=== PATIENT | male | born 1975 | race African-American/Black ===

== ENCOUNTER 2016-10-14 12:21 | Inpatient (IN) | payer OTHER ==
[2016-10-14 12:44] VITALS: BMI 21.3
--- NOTE | 2016-10-14 15:33 | HP ---
CIWA Score - CIWA Score Nausea/Vomitin-No Nausea/No Vomiting Muscle Tremors: 4-Moderate,w/Arms Extend Anxiety: 3 Agitation: 4-Moderately Restless Paroxysmal Sweats: 3 Orientation: 0-Oriented Tacttile Disturbances: 0-None Auditory Disturbances: 0-None Visual Disturbances: 0-None Headache: 0-None Present CIWA-Ar Total Score: 14 Admission ROS BHS - HPI Chief Complaint: I am here to detox. Allergies/Adverse Reactions: Allergies Allergy/AdvReac Type Severity Reaction Status Date / Time No Known Allergies Allergy Verified 10/14/16 14:49 History of Present Illness: pt is a 40yr old male with a history of alcohol and cocaine dependence seeking detox for treatment. Exam Limitations: No Limitations - Ebola screening Have you traveled outside of the country in the last 21 days: No Have you had contact with anyone from an Ebola affected area: No Have you been sick,other than usual withdrawal symptoms: No Do you have a fever: No - Review of Systems Constitutional: Chills, Diaphoresis, Loss of Appetite, Night Sweats, Changes in sleep, Unintentional Wgt. Loss EENT: reports: No Symptoms Reported Respiratory: reports: No Symptoms reported Cardiac: reports: No Symptoms Reported GI: reports: Diarrhea, Poor Fluid Intake : reports: No Symptoms Reported Musculoskeletal: reports: Back Pain, Muscle Pain Integumentary: reports: Flushing, Sweating Neuro: reports: Tingling, Tremors Endocrine: reports: Excessive Sweating, Flushing, Intolerance to Cold, Intolerance to Heat Hematology: reports: No Symptoms Reported Psychiatric: reports: Judgement Intact, Mood/Affect Appropiate, Orientated x3, Agitated, Anxious Other Systems: Reviewed and Negative Patient History - Patient Medical History Hx Anemia: No Hx Asthma: No Hx Chronic Obstructive Pulmonary Disease (COPD): No Hx Cancer: No Hx Cardiac Disorders: No Hx Congestive Heart Failure: No Hx Hypertension: No Hx Hypercholesterolemia: No Hx Pacemaker: No HX Cerebrovascular Accident: No Hx Seizures: No Hx Diabetes: No Hx Gastrointestinal Disorders: No Hx Liver Disease: No Hx Genitourinary Disorders: No Hx Sexually Transmitted Disorders: Yes (gonarrhea and tx.) Hx Renal Disease (ESRD): No Hx Human Immunodeficiency Virus (HIV): Yes (diagonosed in 1992. ) Hx Hepatitis C: No Hx Depression: Yes Hx Suicide Attempt: No (denies) Hx Bipolar Disorder: No Hx Schizophrenia: No - Patient Surgical History Past Surgical History: Yes Hx Neurologic Surgery: No Hx Cataract Extraction: No Hx Cardiac Surgery: No Hx Lung Surgery: No Hx Breast Surgery: No Hx Breast Biopsy: No Hx Abdominal Surgery: No Hx Appendectomy: No Hx Cholecystectomy: No Hx Genitourinary Surgery: No Hx Section: No Hx Orthopedic Surgery: No Anesthesia Reaction: No - PPD History Previous Implant?: Yes Documented Results: Negative w/o proof Implanted On Prior [facility] Admission?: Yes PPD to be Administered?: Yes - Reproductive History Patient is a Female of Child Bearing Age (11 -55 yrs old): No Patient : No - Smoking Cessation Smoking history: Current every day smoker Have you smoked in the past 12 months: Yes Aproximately how many cigarettes per day: 10 Hx Chewing Tobacco Use: No Initiated information on smoking cessation: Yes 'Breaking Loose' booklet given: 10/14/16 - Substance & Tx. History Hx Alcohol Use: Yes Hx Substance Use: Yes Substance Use Type: Alcohol, Cocaine, Tranquilizers Hx Substance Use Treatment: Yes (last detox [facility] 6months ago) - Substances Abused Alcohol Route: Oral Frequency: Daily Amount used: 3PINTS vodka Age of first use: 12 Date of Last Use: 10/13/16 Cocaine Route: Smoking Frequency: Daily Amount used: $200 Age of first use: 16 Date of Last Use: 10/13/16 CRYSTAL METH Route: Smoking Frequency: 1-2 times per week Amount used: $240 Age of first use: 34 Date of Last Use: 10/12/16 Family Disease History - Family Disease History Family History: Denies Admission Physical Exam [facility] - Vital Signs Vital Signs: Vital Signs - 24 hr 10/14/16 12:41 Temperature 98.5 F Pulse Rate 86 Respiratory 16 Rate Blood Pressure 124/72 - Physical General Appearance: Yes: Appropriately Dressed, Moderate Distress, Thin, Tremorous, Irritable, Sweating, Anxious HEENTM: Yes: Hearing grossly Normal, Normal ENT Inspection, Normal Voice, Pharynx Normal Respiratory: Yes: Lungs Clear, Normal Breath Sounds, No Respiratory Distress Neck: Yes: Within Normal Limits Breast: Yes: Within Normal Limits Cardiology: Yes: Regular Rhythm, Regular Rate, S1, S2 Abdominal: Yes: Normal Bowel Sounds, Non Tender, Soft Genitourinary: Yes: Within Normal Limits Back: Yes: Normal Inspection Musculoskeletal: Yes: Back pain Extremities: Yes: Normal Capillary Refill, Normal Inspection, Tremors Neurological: Yes: Fully Oriented, Alert, Normal Response Integumentary: Yes: Normal Color, Diaphoresis Lymphatic: Yes: Within Normal Limits - Diagnostic (1) Alcohol dependence with uncomplicated withdrawal Current Visit: Yes Status: Chronic (2) Crack cocaine use Current Visit: Yes Status: Chronic (3) Methamphetamine dependence Current Visit: Yes Status: Chronic (4) Nicotine dependence Current Visit: Yes Status: Chronic Qualifiers: Nicotine product type: cigarettes Substance use status: uncomplicated Qualified Code(s): F17.210 - Nicotine dependence, cigarettes, uncomplicated (5) HIV disease Current Visit: Yes Status: Chronic Comment: pt not sure his CD4/viral load Cleared for Admission [facility] - Detox or Rehab [facility] Level of Care: Medically Managed Detox Regimen/Protocol: Librium [facility] Breath Alcohol Content Breath Alcohol Content: 0 Urine Drug Screen - Results Drug Screen Negative: No Urine Drug Screen Results: THC-Marijuana, LOIDA-Cocaine
[2016-10-14] MEDS ORDERED: IBUPROFEN 400 MG TABLET (FP) PO PRN (15:42)
[2016-10-14] MEDS ORDERED: ACETAMINOPHEN 325 MG TABLET (FP) PO PRN (15:42)
[2016-10-14] MEDS ORDERED: LOPERAMIDE HCL 2 MG CAPSULE PO PRN (15:42)
[2016-10-14] MEDS ORDERED: guaiFENesin/D-METHORPHAN HB 10 ML UNIT-DOSE CUPS PO PRN (15:42)
[2016-10-14] MEDS ORDERED: P-EPHED 60MG/TRIPROLIDI 2.5MG TABLET PO PRN (15:42)
[2016-10-14] MEDS ORDERED: diphenhydrAMINE HCL 50 MG CAPSULE PO PRN (15:42)
[2016-10-14] MEDS ORDERED: MAGNESIUM HYDROX 2400MG/30ML ORAL SUSPENSION 30 ML CUP PO PRN (15:42)
[2016-10-14] MEDS ORDERED: MAGNESIUM CITRATE 300 ML BOTTLE PO PRN (15:42)
[2016-10-14] MEDS ORDERED: chlordiazePOXIDE HCL 25 MG CAPSULE PO PRN (15:42)
[2016-10-14] MEDS ORDERED: MAG HYDROX/AL HYDROX/SIMETH 30 ML UNIT-DOSE CUP PO PRN (15:42)
[2016-10-14] MEDS ORDERED: hydrOXYzine PAMOATE 50 MG CAPSULE (FP) PO PRN (15:42)
[2016-10-14] MEDS ORDERED: MENTHOL/PHENOL 1 EACH UD MM PRN (15:42)
[2016-10-14] MEDS ORDERED: AZITHROMYCIN 250 MG TABLET (FP) PO ONE (17:15)
[2016-10-14] MEDS ORDERED: chlordiazePOXIDE HCL 25 MG CAPSULE PO ONE (17:15)
[2016-10-14] MEDS: chlordiazePOXIDE HCL 25 MG CAPSULE PO SCH ×2 (19:17→22:29)
[2016-10-14] MEDS: SULFAMETHOXAZOLE/TRIMETHOPRIM 800MG/160MG D.S. TABLET PO SCH (22:28)
[2016-10-14] MEDS: THIAMINE HCL 100 MG TABLET (FP) PO SCH (22:28)
[2016-10-14 22:34] LABS: URINE APPEARANCE CLEAR; URINE BILIRUBIN NEGATIVE (NEGATIVE); URINE BLOOD NEGATIVE (NEGATIVE); URINE COLOR YELLOW; URINE GLUCOSE (UA) NEGATIVE (NEGATIVE); URINE KETONE NEGATIVE (NEGATIVE); URINE LEUK ESTERASE NEGATIVE (NEGATIVE); URINE NITRITE NEGATIVE (NEGATIVE); URINE PROTEIN NEGATIVE (NEGATIVE)
[2016-10-15] MEDS: chlordiazePOXIDE HCL 25 MG CAPSULE PO SCH ×4 (06:11→22:51)
[2016-10-15] MEDS: PRENATAL VITAMINS W/ FOLIC ACID TABLET (FP) PO SCH (10:55)
[2016-10-15] MEDS: AZITHROMYCIN 250 MG TABLET (FP) PO SCH (10:55)
[2016-10-15] MEDS: EMTRICITABINE 200MG/TENOFOVIR 300MG PO SCH (10:55)
[2016-10-15] MEDS: DARUNAVIR ETHANOLATE 600 MG TAB PO SCH (10:55)
[2016-10-15] MEDS: RITONAVIR 100 MG TABLET PO SCH (10:57)
[2016-10-15] MEDS: NICOTINE 21 MG/24 HOURS TOPICAL PATCH TD SCH (10:57)
[2016-10-15 10:58] LABS: MCHC 32.5 g/dl (32.0-35.9); MEAN CELL VOLUME 83.2 fl (80-96); MEAN PLT VOLUME 12.2 fl (7.5-11.1); PLATELET COUNT 177 K/MM3 (134-434); RDW 13.3 % (11.9-15.9)
[2016-10-15 11:13] LABS: ALBUMIN 3.4 g/dl (3.4-5.0); ANION GAP 7 (8-16); CALCIUM 8.5 mg/dL (8.5-10.1); CO2 28 mmol/L (21-32); GLUCOSE,RANDOM 82 mg/dL (74-106); SGOT/AST 26 U/L (15-37)
[2016-10-15 11:29] LABS: ALK PHOS 73 U/L (45-117); BILIRUBIN,TOTAL 0.4 mg/dL (0.2-1.0); SGPT/ALT 34 U/L (12-78); TOT PROT 6.7 g/dl (6.4-8.2)
[2016-10-15] MEDS: SULFAMETHOXAZOLE/TRIMETHOPRIM 800MG/160MG D.S. TABLET PO SCH ×2 (11:29→22:51)
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
[2016-10-15 14:34] LABS: WHITE BLOOD COUNT 1.7 K/mm3 (4.0-10.0)
[2016-10-15 14:38] LABS: TOTAL CELLS COUNTED 100
--- NOTE | 2016-10-15 14:57 | PN ---
[facility] CIWA - CIWA Score Nausea/Vomitin-Mild Nausea/No Vomiting Muscle Tremors: 4-Moderate,w/Arms Extend Anxiety: 3 Agitation: 2 Paroxysmal Sweats: 2 Orientation: 0-Oriented Tacttile Disturbances: 2-Mild Itch/Numbness/Burn Auditory Disturbances: 3-Moderate Harsh/Frighten Visual Disturbances: 0-None Headache: 0-None Present CIWA-Ar Total Score: 17 S Progress Note (SOAP) Subjective: Fatigue, Sweating, Tremors. Objective: PT. A & O X 3. NO ACUTE DISTRESS. PT. DENIES CHEST PAIN. 10/15/16 14:55 Vital Signs Temperature 98.7 F 10/15/16 14:39 Pulse Rate 82 10/15/16 14:39 Respiratory Rate 20 10/15/16 14:39 Blood Pressure 115/88 10/15/16 14:39 O2 Sat by Pulse Oximetry (%) Laboratory Tests 10/14/16 10/15/16 10/15/16 21:45 06:10 06:10 WBC 1.7 L* RBC 4.50 Hgb 12.2 Hct 37.4 MCV 83.2 MCH 27.0 MCHC 32.5 RDW 13.3 Plt Count 177 MPV 12.2 H Neutrophils % (Manual) 37 L Lymphocytes % (Manual) 61 H Monocytes % (Manual) 1 L Eosinophils % (Manual) 1 Sodium 144 Potassium 3.6 Chloride 109 H Carbon Dioxide 28 Anion Gap 7 L BUN 11 Creatinine 1.0 Creat Clearance w eGFR > 60 Random Glucose 82 Calcium 8.5 Total Bilirubin 0.4 AST 26 ALT 34 Alkaline Phosphatase 73 Total Protein 6.7 Albumin 3.4 Urine Color Yellow Urine Appearance Clear Urine pH 5.0 Ur Specific [place] 1.020 Urine Protein Negative Urine Glucose (UA) Negative Urine Ketones Negative Urine Blood Negative Urine Nitrite Negative Urine Bilirubin Negative Urine Urobilinogen 2.0 Ur Leukocyte Esterase Negative RPR Titer 10/15/16 06:10 WBC RBC Hgb Hct MCV MCH MCHC RDW Plt Count MPV Neutrophils % (Manual) Lymphocytes % (Manual) Monocytes % (Manual) Eosinophils % (Manual) Sodium Potassium Chloride Carbon Dioxide Anion Gap BUN Creatinine Creat Clearance w eGFR Random Glucose Calcium Total Bilirubin AST ALT Alkaline Phosphatase Total Protein Albumin Urine Color Urine Appearance Urine pH Ur Specific [place] Urine Protein Urine Glucose (UA) Urine Ketones Urine Blood Urine Nitrite Urine Bilirubin Urine Urobilinogen Ur Leukocyte Esterase RPR Titer Nonreactive LABS NOTED. RESULT OF WBC NOTED. 10/15/16 15:00 Assessment: 10/15/16 14:56 WITHDRAWAL SYMPTOMS. Plan: CONTINUE DETOX. REPEAT CBC TOMORROW FOR LOW WBC FROM TODAY.
--- NOTE | 2016-10-15 18:45 | EKG ---
Test Reason : Blood Pressure : / mmHG Vent. Rate : 072 BPM Atrial Rate : 072 BPM P-R Int : 170 ms QRS Dur : 082 ms QT Int : 398 ms P-R-T Axes : 049 013 046 degrees QTc Int : 435 ms NORMAL SINUS RHYTHM NORMAL ECG NO PREVIOUS ECGS AVAILABLE Confirmed by SILVER JOHNSON MD ([id number]) on 10/15/2016 6:44:52 PM Referred By: Danial Eduardo Confirmed By:SILVER JOHNSON MD
[2016-10-15] MEDS: THIAMINE HCL 100 MG TABLET (FP) PO SCH (22:51)
[2016-10-15] MEDS: NICOTINE POLACRILEX 4 MG GUM BC PRN (22:54)
[2016-10-16] MEDS: chlordiazePOXIDE HCL 25 MG CAPSULE PO SCH ×2 (06:29→11:09)
[2016-10-16 10:27] LABS: BASOPHIL 0.4 % (0-2.0); EOSINOPHIL 1.7 % (0-4.5); MCH 27.1 pg (25.7-33.7); MCHC 32.5 g/dl (32.0-35.9); MEAN CELL VOLUME 83.3 fl (80-96); MEAN PLT VOLUME 9.4 fl (7.5-11.1); NEUTROPHILS 35.2 % (42.8-82.8); PLATELET COUNT 186 K/MM3 (134-434); RDW 13.6 % (11.9-15.9); WHITE BLOOD COUNT 2.6 K/mm3 (4.0-10.0)
[2016-10-16] MEDS: EMTRICITABINE 200MG/TENOFOVIR 300MG PO SCH (11:07)
[2016-10-16] MEDS: AZITHROMYCIN 250 MG TABLET (FP) PO SCH (11:07)
[2016-10-16] MEDS: RITONAVIR 100 MG TABLET PO SCH (11:07)
[2016-10-16] MEDS: DARUNAVIR ETHANOLATE 600 MG TAB PO SCH (11:07)
[2016-10-16] MEDS: PRENATAL VITAMINS W/ FOLIC ACID TABLET (FP) PO SCH (11:08)
[2016-10-16] MEDS: NICOTINE 21 MG/24 HOURS TOPICAL PATCH TD SCH (11:08)
[2016-10-16] MEDS: SULFAMETHOXAZOLE/TRIMETHOPRIM 800MG/160MG D.S. TABLET PO SCH ×2 (11:09→22:37)
--- NOTE | 2016-10-16 16:37 | PN ---
S CIWA - CIWA Score Nausea/Vomitin-No Nausea/No Vomiting Muscle Tremors: 4-Moderate,w/Arms Extend Anxiety: 4-Mod. Anxious/Guarded Agitation: 4-Moderately Restless Paroxysmal Sweats: 3 Orientation: 0-Oriented Tacttile Disturbances: 1-Very Mild Itch/Numbness Auditory Disturbances: 0-None Visual Disturbances: 0-None Headache: 2-Mild CIWA-Ar Total Score: 18 BHS Progress Note (SOAP) Subjective: Tremor, chills, diarrhea, anxious, interrupted sleep Objective: 10/16/16 16:32 Last Vital Signs Temp Pulse Resp BP Pulse Ox 97.1 F L 61 18 97/64 10/16/16 10:21 10/16/16 10:21 10/16/16 10:21 10/16/16 10:21 Noted with hypotension Laboratory Tests 10/14/16 10/15/16 10/15/16 21:45 06:10 06:10 WBC 1.7 L* RBC 4.50 Hgb 12.2 Hct 37.4 MCV 83.2 MCH 27.0 MCHC 32.5 RDW 13.3 Plt Count 177 MPV 12.2 H Neutrophils % Neutrophils % (Manual) 37 L Lymphocytes % Lymphocytes % (Manual) 61 H Monocytes % Monocytes % (Manual) 1 L Eosinophils % Eosinophils % (Manual) 1 Basophils % Sodium 144 Potassium 3.6 Chloride 109 H Carbon Dioxide 28 Anion Gap 7 L BUN 11 Creatinine 1.0 Creat Clearance w eGFR > 60 Random Glucose 82 Calcium 8.5 Total Bilirubin 0.4 AST 26 ALT 34 Alkaline Phosphatase 73 Total Protein 6.7 Albumin 3.4 Urine Color Yellow Urine Appearance Clear Urine pH 5.0 Ur Specific [place] 1.020 Urine Protein Negative Urine Glucose (UA) Negative Urine Ketones Negative Urine Blood Negative Urine Nitrite Negative Urine Bilirubin Negative Urine Urobilinogen 2.0 Ur Leukocyte Esterase Negative RPR Titer 10/15/16 10/16/16 06:10 07:45 WBC 2.6 L D RBC 4.72 Hgb 12.8 Hct 39.3 MCV 83.3 MCH 27.1 MCHC 32.5 RDW 13.6 Plt Count 186 MPV 9.4 D Neutrophils % 35.2 L Neutrophils % (Manual) Lymphocytes % 50.0 H Lymphocytes % (Manual) Monocytes % 12.7 H Monocytes % (Manual) Eosinophils % 1.7 Eosinophils % (Manual) Basophils % 0.4 Sodium Potassium Chloride Carbon Dioxide Anion Gap BUN Creatinine Creat Clearance w eGFR Random Glucose Calcium Total Bilirubin AST ALT Alkaline Phosphatase Total Protein Albumin Urine Color Urine Appearance Urine pH Ur Specific [place] Urine Protein Urine Glucose (UA) Urine Ketones Urine Blood Urine Nitrite Urine Bilirubin Urine Urobilinogen Ur Leukocyte Esterase RPR Titer Nonreactive Labs noted: wbc 2.6 Assessment: 10/16/16 16:33 Withdrawal symptoms Noted with hypotension Noted with leukopenia Plan: Continue detox Hypotension: asymptomatic, encouraged to drink lots of water (water pitcher ordered) Leukopenia: encouraged hand washing with soap and water, monitor for s/sx of infection
[2016-10-16] MEDS: chlordiazePOXIDE 5 MG CAPSULE PO SCH ×2 (17:03→22:37)
[2016-10-16] MEDS: NICOTINE POLACRILEX 4 MG GUM BC PRN (17:05)
[2016-10-16] MEDS: THIAMINE HCL 100 MG TABLET (FP) PO SCH (22:37)
[2016-10-17] MEDS: chlordiazePOXIDE 5 MG CAPSULE PO SCH ×2 (05:36→10:56)
[2016-10-17 09:44] VITALS: BP 117/79; PULSE 81; TEMP 98.5
--- NOTE | 2016-10-17 10:13 | PN ---
S Progress Note (SOAP) Subjective: Nausea,headache,sweating,interrupted sleep. Objective: 10/17/16 10:12 Vital Signs - 8 hr 10/17/16 10/17/16 10/17/16 03:54 06:28 09:44 Temperature 97.7 F 98.5 F Pulse Rate 75 81 Respiratory 18 18 18 Rate Blood Pressure 111/78 117/79 Laboratory Last Values WBC 2.6 K/mm3 (4.0-10.0) L D 10/16/16 07:45 RBC 4.72 M/mm3 (4.00-5.60) 10/16/16 07:45 Hgb 12.8 GM/dL (11.7-16.9) 10/16/16 07:45 Hct 39.3 % (35.4-49) 10/16/16 07:45 MCV 83.3 fl (80-96) 10/16/16 07:45 MCH 27.1 pg (25.7-33.7) 10/16/16 07:45 MCHC 32.5 g/dl (32.0-35.9) 10/16/16 07:45 RDW 13.6 % (11.9-15.9) 10/16/16 07:45 Plt Count 186 K/MM3 (134-434) 10/16/16 07:45 MPV 9.4 fl (7.5-11.1) D 10/16/16 07:45 Neutrophils % 35.2 % (42.8-82.8) L 10/16/16 07:45 Neutrophils % (Manual) 37 % (42.8-82.8) L 10/15/16 06:10 Lymphocytes % 50.0 % (8-40) H 10/16/16 07:45 Lymphocytes % (Manual) 61 % (8-40) H 10/15/16 06:10 Monocytes % 12.7 % (3.8-10.2) H 10/16/16 07:45 Monocytes % (Manual) 1 % (3.8-10.2) L 10/15/16 06:10 Eosinophils % 1.7 % (0-4.5) 10/16/16 07:45 Eosinophils % (Manual) 1 % (0-4.5) 10/15/16 06:10 Basophils % 0.4 % (0-2.0) 10/16/16 07:45 Sodium 144 mmol/L (136-145) 10/15/16 06:10 Potassium 3.6 mmol/L (3.5-5.1) 10/15/16 06:10 Chloride 109 mmol/L (98-107) H 10/15/16 06:10 Carbon Dioxide 28 mmol/L (21-32) 10/15/16 06:10 Anion Gap 7 (8-16) L 10/15/16 06:10 BUN 11 mg/dL (7-18) 10/15/16 06:10 Creatinine 1.0 mg/dL (0.7-1.3) 10/15/16 06:10 Creat Clearance w eGFR > 60 (>60) 10/15/16 06:10 Random Glucose 82 mg/dL (74-106) 10/15/16 06:10 Calcium 8.5 mg/dL (8.5-10.1) 10/15/16 06:10 Total Bilirubin 0.4 mg/dL (0.2-1.0) 10/15/16 06:10 AST 26 U/L (15-37) 10/15/16 06:10 ALT 34 U/L (12-78) 10/15/16 06:10 Alkaline Phosphatase 73 U/L (45-117) 10/15/16 06:10 Total Protein 6.7 g/dl (6.4-8.2) 10/15/16 06:10 Albumin 3.4 g/dl (3.4-5.0) 10/15/16 06:10 Urine Color Yellow 10/14/16 21:45 Urine Appearance Clear 10/14/16 21:45 Urine pH 5.0 (5.0-8.0) 10/14/16 21:45 Ur Specific [place] 1.020 (1.005-1.025) 10/14/16 21:45 Urine Protein Negative (NEGATIVE) 10/14/16 21:45 Urine Glucose (UA) Negative (NEGATIVE) 10/14/16 21:45 Urine Ketones Negative (NEGATIVE) 10/14/16 21:45 Urine Blood Negative (NEGATIVE) 10/14/16 21:45 Urine Nitrite Negative (NEGATIVE) 10/14/16 21:45 Urine Bilirubin Negative (NEGATIVE) 10/14/16 21:45 Urine Urobilinogen 2.0 mg/dL (0.2-1.0) 10/14/16 21:45 Ur Leukocyte Esterase Negative (NEGATIVE) 10/14/16 21:45 RPR Titer Nonreactive (NONREACTIVE) 10/15/16 06:10 labs noted Assessment: 10/17/16 10:13 Withdrawal sx. Plan: Continue detox
[2016-10-17] MEDS: RITONAVIR 100 MG TABLET PO SCH (10:55)
[2016-10-17] MEDS: AZITHROMYCIN 250 MG TABLET (FP) PO SCH (10:55)
[2016-10-17] MEDS: SULFAMETHOXAZOLE/TRIMETHOPRIM 800MG/160MG D.S. TABLET PO SCH (10:55)
[2016-10-17] MEDS: EMTRICITABINE 200MG/TENOFOVIR 300MG PO SCH (10:55)
[2016-10-17] MEDS: DARUNAVIR ETHANOLATE 600 MG TAB PO SCH (10:55)
[2016-10-17] MEDS: PRENATAL VITAMINS W/ FOLIC ACID TABLET (FP) PO SCH (10:55)
[2016-10-17] MEDS: NICOTINE 21 MG/24 HOURS TOPICAL PATCH TD SCH (11:04)
--- NOTE | 2016-10-17 15:42 | DS ---
[facility] Detox Discharge Summary Admission Date: 10/14/16 Discharge Date: 10/17/16 - History Present History: Alcohol Dependence, Cannabis Dependence, Cocaine Dependence Pertinent Past History: HIV Disease - Physical Exam Results Vital Signs: Vital Signs Temperature 98.5 F 10/17/16 09:44 Pulse Rate 81 10/17/16 09:44 Respiratory Rate 18 10/17/16 09:44 Blood Pressure 117/79 10/17/16 09:44 O2 Sat by Pulse Oximetry (%) Pertinent Admission Physical Exam Findings: Withdrawal sx. Laboratory Last Values WBC 2.6 K/mm3 (4.0-10.0) L D 10/16/16 07:45 RBC 4.72 M/mm3 (4.00-5.60) 10/16/16 07:45 Hgb 12.8 GM/dL (11.7-16.9) 10/16/16 07:45 Hct 39.3 % (35.4-49) 10/16/16 07:45 MCV 83.3 fl (80-96) 10/16/16 07:45 MCH 27.1 pg (25.7-33.7) 10/16/16 07:45 MCHC 32.5 g/dl (32.0-35.9) 10/16/16 07:45 RDW 13.6 % (11.9-15.9) 10/16/16 07:45 Plt Count 186 K/MM3 (134-434) 10/16/16 07:45 MPV 9.4 fl (7.5-11.1) D 10/16/16 07:45 Neutrophils % 35.2 % (42.8-82.8) L 10/16/16 07:45 Neutrophils % (Manual) 37 % (42.8-82.8) L 10/15/16 06:10 Lymphocytes % 50.0 % (8-40) H 10/16/16 07:45 Lymphocytes % (Manual) 61 % (8-40) H 10/15/16 06:10 Monocytes % 12.7 % (3.8-10.2) H 10/16/16 07:45 Monocytes % (Manual) 1 % (3.8-10.2) L 10/15/16 06:10 Eosinophils % 1.7 % (0-4.5) 10/16/16 07:45 Eosinophils % (Manual) 1 % (0-4.5) 10/15/16 06:10 Basophils % 0.4 % (0-2.0) 10/16/16 07:45 Sodium 144 mmol/L (136-145) 10/15/16 06:10 Potassium 3.6 mmol/L (3.5-5.1) 10/15/16 06:10 Chloride 109 mmol/L (98-107) H 10/15/16 06:10 Carbon Dioxide 28 mmol/L (21-32) 10/15/16 06:10 Anion Gap 7 (8-16) L 10/15/16 06:10 BUN 11 mg/dL (7-18) 10/15/16 06:10 Creatinine 1.0 mg/dL (0.7-1.3) 10/15/16 06:10 Creat Clearance w eGFR > 60 (>60) 10/15/16 06:10 Random Glucose 82 mg/dL (74-106) 10/15/16 06:10 Calcium 8.5 mg/dL (8.5-10.1) 10/15/16 06:10 Total Bilirubin 0.4 mg/dL (0.2-1.0) 10/15/16 06:10 AST 26 U/L (15-37) 10/15/16 06:10 ALT 34 U/L (12-78) 10/15/16 06:10 Alkaline Phosphatase 73 U/L (45-117) 10/15/16 06:10 Total Protein 6.7 g/dl (6.4-8.2) 10/15/16 06:10 Albumin 3.4 g/dl (3.4-5.0) 10/15/16 06:10 Urine Color Yellow 10/14/16 21:45 Urine Appearance Clear 10/14/16 21:45 Urine pH 5.0 (5.0-8.0) 10/14/16 21:45 Ur Specific [place] 1.020 (1.005-1.025) 10/14/16 21:45 Urine Protein Negative (NEGATIVE) 10/14/16 21:45 Urine Glucose (UA) Negative (NEGATIVE) 10/14/16 21:45 Urine Ketones Negative (NEGATIVE) 10/14/16 21:45 Urine Blood Negative (NEGATIVE) 10/14/16 21:45 Urine Nitrite Negative (NEGATIVE) 10/14/16 21:45 Urine Bilirubin Negative (NEGATIVE) 10/14/16 21:45 Urine Urobilinogen 2.0 mg/dL (0.2-1.0) 10/14/16 21:45 Ur Leukocyte Esterase Negative (NEGATIVE) 10/14/16 21:45 RPR Titer Nonreactive (NONREACTIVE) 10/15/16 06:10 labs noted - Medication Discharge Medications: Ambulatory Orders Darunavir Ethanolate [Prezista -] 600 mg PO DAILY 10/14/16 Emtricitabine/Tenofovir [Truvada -] 100 mg PO DAILY 10/14/16 Ritonavir [Norvir -] 100 mg PO DAILY 10/14/16 Sulfamethoxazole/Trimethoprim [Bactrim Ds -] 1 tab PO BID 10/14/16 - Diagnosis (1) Alcohol dependence with uncomplicated withdrawal Status: Acute (2) Cocaine dependence Status: Acute Qualifiers: Substance use status: uncomplicated Qualified Code(s): F14.20 - Cocaine dependence, uncomplicated (3) Marihuana dependence Status: Acute (4) Nicotine dependence Status: Acute Qualifiers: Nicotine product type: cigarettes Substance use status: uncomplicated Qualified Code(s): F17.210 - Nicotine dependence, cigarettes, uncomplicated (5) Substance induced mood disorder Status: Acute (6) HIV disease Status: Chronic - AMA Did Patient Leave Against Medical Advice: Yes
[2016-10-17] MEDS ORDERED: chlordiazePOXIDE HCL 10 MG CAPSULE PO SCH (17:00)
== END 2016-10-17 12:43 | disposition left against medical advice (07) | DRG 770 ==
LOC: YASAS 12:21 → Y3N 16:13
PROVIDERS: ADMIT Internal Medicine; ATTEND Internal Medicine
PROC: HZ2ZZZZ Detoxification Services for Substance Abuse Treatment (ICD-10-PCS; principal; 2016-10-14)
DX: F10.230 Alcohol dependence with withdrawal, uncomplicated (principal); F14.20 Cocaine dependence, uncomplicated; F15.20 Other stimulant dependence, uncomplicated; F12.20 Cannabis dependence, uncomplicated; F17.210 Nicotine dependence, cigarettes, uncomplicated; F19.24 Other psychoactive substance dependence with psychoactive substance-induced mood disorder; D72.819 Decreased white blood cell count, unspecified; Z21 Asymptomatic human immunodeficiency virus [HIV] infection status; I95.9 Hypotension, unspecified; Z91.14 Patient's other noncompliance with medication regimen; Z87.438 Personal history of other diseases of male genital organs
CPT/HCPCS: 36415; 80053; 81003; 85025; 85027; 86593; 93005; 93010

== ENCOUNTER 2018-02-23 10:23 | Inpatient (IN) | payer OTHER ==
[2018-02-23 10:45] VITALS: BMI 22.7
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
[2018-02-23] MEDS ORDERED: NICOTINE POLACRILEX 2 MG GUM BUC PRN (11:40)
[2018-02-23] MEDS ORDERED: guaiFENesin/D-METHORPHAN HB 10 ML UNIT-DOSE CUPS PO PRN (11:40)
[2018-02-23] MEDS ORDERED: ACETAMINOPHEN 325 MG TABLET (FP) PO PRN (11:40)
[2018-02-23] MEDS ORDERED: hydrOXYzine PAMOATE 25 MG CAPSULE (FP) PO PRN (11:40)
[2018-02-23] MEDS ORDERED: MAGNESIUM HYDROX 2400MG/30ML ORAL SUSPENSION 30 ML CUP PO PRN (11:40)
[2018-02-23] MEDS ORDERED: MENTHOL/PHENOL 1 EACH UD MM PRN (11:40)
[2018-02-23] MEDS ORDERED: LOPERAMIDE HCL 2 MG CAPSULE PO PRN (11:40)
[2018-02-23] MEDS ORDERED: chlordiazePOXIDE HCL 25 MG CAPSULE PO PRN (11:40)
[2018-02-23] MEDS ORDERED: MAGNESIUM CITRATE 300 ML BOTTLE PO PRN (11:40)
[2018-02-23] MEDS ORDERED: MAG HYDROX/AL HYDROX/SIMETH 30 ML UNIT-DOSE CUP PO PRN (11:40)
[2018-02-23] MEDS ORDERED: P-EPHED 60MG/TRIPROLIDI 2.5MG TABLET PO PRN (11:40)
[2018-02-23] MEDS ORDERED: IBUPROFEN 400 MG TABLET (FP) PO PRN (11:40)
[2018-02-23] MEDS: NICOTINE 21 MG/24 HOURS TOPICAL PATCH TD SCH (12:50)
[2018-02-23] MEDS: chlordiazePOXIDE HCL 25 MG CAPSULE PO SCH ×2 (17:08→22:14)
[2018-02-23] MEDS ORDERED: MELATONIN 5 MG TABLETS PO PRN (22:00)
[2018-02-23] MEDS: THIAMINE HCL 100 MG TABLET (FP) PO SCH (22:14)
[2018-02-24] MEDS: chlordiazePOXIDE HCL 25 MG CAPSULE PO SCH ×4 (05:37→22:24)
--- NOTE | 2018-02-24 10:35 | PN ---
S CIWA - CIWA Score Nausea/Vomitin Muscle Tremors: 2 Anxiety: 4-Mod. Anxious/Guarded Agitation: 3 Paroxysmal Sweats: 2 Orientation: 0-Oriented Tacttile Disturbances: 0-None Auditory Disturbances: 0-None Visual Disturbances: 0-None Headache: 0-None Present CIWA-Ar Total Score: 14 BHS Progress Note (SOAP) Subjective: PATIENT C/O DIARRHEA, CHILLS, SWEATING AND RESTLESSNESS. Objective: Vital Signs Temperature 97.5 F L 02/24/18 09:27 Pulse Rate 77 02/24/18 09:27 Respiratory Rate 18 02/24/18 09:27 Blood Pressure 112/68 02/24/18 09:27 O2 Sat by Pulse Oximetry (%) PE: ALERT AND ORIENTED X 3 +RESTLESSNESS SKIN +CHILLS, MILD DAMPNESS TO SHIRT EXT FULL ROM AMB AD CHRISTINE Assessment: 02/24/18 10:34 WITHDRAWAL SX Plan: CONTINUE DETOX ENCOURAGE ORAL FLUIDS CONTINUE TO MONITOR LABS PENDING
[2018-02-24] MEDS: NICOTINE 21 MG/24 HOURS TOPICAL PATCH TD SCH (10:41)
[2018-02-24] MEDS: PRENATAL VITAMINS W/ FOLIC ACID TABLET (FP) PO SCH (10:41)
[2018-02-24 11:17] LABS: HEMATOCRIT 40.9 % (35.4-49); HEMOGLOBIN 12.9 GM/dL (11.7-16.9); MCH 25.4 pg (25.7-33.7); MCHC 31.6 g/dl (32.0-35.9); MEAN CELL VOLUME 80.4 fl (80-96); MEAN PLT VOLUME 12.8 fl (7.5-11.1); PLATELET COUNT 171 K/MM3 (134-434); RBC 5.08 M/mm3 (4.00-5.60); RDW 15.9 % (11.9-15.9); WHITE BLOOD COUNT 2.3 K/mm3 (4.0-10.0)
[2018-02-24 11:48] LABS: ALBUMIN 3.5 g/dl (3.4-5.0); ALK PHOS 149 U/L (45-117); ANION GAP 7 MMOL/L (8-16); BILIRUBIN,TOTAL 0.2 mg/dL (0.2-1); BLOOD UREA NITROGEN 17 mg/dL (7-18); CALCIUM 8.2 mg/dL (8.5-10.1); CHLORIDE 107 mmol/L (98-107); CO2 27 mmol/L (21-32); GLUCOSE,RANDOM 69 mg/dL (74-106); POTASSIUM 3.9 mmol/L (3.5-5.1); SGOT/AST 35 U/L (15-37); SGPT/ALT 33 U/L (13-61); SODIUM 141 mmol/L (136-145); TOT PROT 7.5 g/dl (6.4-8.2)
[2018-02-24 13:33] LABS: RPR REACTIVE 1:4 (NONREACTIVE)
[2018-02-24 15:11] LABS: TREPONEMA ANTIBODY REACTIVE (NONREACTIVE)
[2018-02-24] MEDS: THIAMINE HCL 100 MG TABLET (FP) PO SCH (22:24)
[2018-02-25] MEDS: chlordiazePOXIDE HCL 25 MG CAPSULE PO SCH ×2 (06:11→10:41)
[2018-02-25 09:33] VITALS: BP 127/74; PULSE 79; TEMP 97.9
[2018-02-25] MEDS: NICOTINE 21 MG/24 HOURS TOPICAL PATCH TD SCH (10:41)
[2018-02-25] MEDS: PRENATAL VITAMINS W/ FOLIC ACID TABLET (FP) PO SCH (10:41)
--- NOTE | 2018-02-25 11:36 | PN ---
[facility] CIWA - CIWA Score Nausea/Vomitin-Mild Nausea/No Vomiting (diarrhea) Muscle Tremors: 3 Anxiety: 3 Agitation: 2 Paroxysmal Sweats: 1-Minimal Palms Moist Orientation: 0-Oriented Tacttile Disturbances: 0-None Auditory Disturbances: 0-None Visual Disturbances: 0-None Headache: 2-Mild CIWA-Ar Total Score: 12 S Progress Note (SOAP) Subjective: tremor sweat diarrhea restlessness Objective: 02/25/18 11:37 Vital Signs Temperature 97.9 F 02/25/18 09:32 Pulse Rate 79 02/25/18 09:32 Respiratory Rate 18 02/25/18 09:32 Blood Pressure 127/74 02/25/18 09:32 O2 Sat by Pulse Oximetry (%) Laboratory Last Values WBC 2.3 K/mm3 (4.0-10.0) L 02/24/18 05:45 RBC 5.08 M/mm3 (4.00-5.60) 02/24/18 05:45 Hgb 12.9 GM/dL (11.7-16.9) 02/24/18 05:45 Hct 40.9 % (35.4-49) 02/24/18 05:45 MCV 80.4 fl (80-96) 02/24/18 05:45 MCH 25.4 pg (25.7-33.7) L 02/24/18 05:45 MCHC 31.6 g/dl (32.0-35.9) L 02/24/18 05:45 RDW 15.9 % (11.9-15.9) D 02/24/18 05:45 Plt Count 171 K/MM3 (134-434) 02/24/18 05:45 MPV 12.8 fl (7.5-11.1) H D 02/24/18 05:45 Sodium 141 mmol/L (136-145) 02/24/18 05:45 Potassium 3.9 mmol/L (3.5-5.1) 02/24/18 05:45 Chloride 107 mmol/L (98-107) 02/24/18 05:45 Carbon Dioxide 27 mmol/L (21-32) 02/24/18 05:45 Anion Gap 7 MMOL/L (8-16) L 02/24/18 05:45 BUN 17 mg/dL (7-18) 02/24/18 05:45 Creatinine 1.0 mg/dL (0.55-1.3) 02/24/18 05:45 Creat Clearance w eGFR > 60 (>60) 02/24/18 05:45 Random Glucose 69 mg/dL (74-106) L 02/24/18 05:45 Calcium 8.2 mg/dL (8.5-10.1) L 02/24/18 05:45 Total Bilirubin 0.2 mg/dL (0.2-1) 02/24/18 05:45 AST 35 U/L (15-37) 02/24/18 05:45 ALT 33 U/L (13-61) 02/24/18 05:45 Alkaline Phosphatase 149 U/L (45-117) H 02/24/18 05:45 Total Protein 7.5 g/dl (6.4-8.2) 02/24/18 05:45 Albumin 3.5 g/dl (3.4-5.0) 02/24/18 05:45 RPR Titer Reactive 1:4 (NONREACTIVE) H D 02/24/18 05:45 T.pallidum Ab ([facility]HA) Reactive (NONREACTIVE) 02/24/18 05:45 lab noted patient agrees to follow up low wbc with infectious disease specialist 02/25/18 11:37 Assessment: 02/25/18 11:43 withdrawal sx hiv syphilis Plan: continue detox encourage to bring in ART medication discuss benefits of medication adherence last Penicillin IM 09/2017 current 1:4 reactive Penicillin IM x 1
[2018-02-25] MEDS ORDERED: PENICILLIN G BENZATHINE 2,400,000 UNIT/4 ML PFS IM ONE (11:46)
--- NOTE | 2018-02-25 12:54 | DS ---
[facility] Detox Discharge Summary Admission Date: 02/23/18 Discharge Date: 02/25/18 - History Present History: Alcohol Dependence Additional Comments: 42 years old male admitted on 02/23/18 for alcohol withdrawal stabilization insists to leave the detox unit that he wants to return to his infectious disease provider for ART and possible latent syphilis treatment of IM Pen x 1 in 3 consecutive weeks patient agrees to consider [facility] and bring in ART as well as wbc follow up - Physical Exam Results Vital Signs: Vital Signs Temperature 97.9 F 02/25/18 09:32 Pulse Rate 79 02/25/18 09:32 Respiratory Rate 18 02/25/18 09:32 Blood Pressure 127/74 02/25/18 09:32 O2 Sat by Pulse Oximetry (%) Pertinent Admission Physical Exam Findings: alcohol withdrawal sx Vital Signs Temperature 97.9 F 02/25/18 09:32 Pulse Rate 79 02/25/18 09:32 Respiratory Rate 18 02/25/18 09:32 Blood Pressure 127/74 02/25/18 09:32 O2 Sat by Pulse Oximetry (%) Laboratory Last Values WBC 2.3 K/mm3 (4.0-10.0) L 02/24/18 05:45 RBC 5.08 M/mm3 (4.00-5.60) 02/24/18 05:45 Hgb 12.9 GM/dL (11.7-16.9) 02/24/18 05:45 Hct 40.9 % (35.4-49) 02/24/18 05:45 MCV 80.4 fl (80-96) 02/24/18 05:45 MCH 25.4 pg (25.7-33.7) L 02/24/18 05:45 MCHC 31.6 g/dl (32.0-35.9) L 02/24/18 05:45 RDW 15.9 % (11.9-15.9) D 02/24/18 05:45 Plt Count 171 K/MM3 (134-434) 02/24/18 05:45 MPV 12.8 fl (7.5-11.1) H D 02/24/18 05:45 Sodium 141 mmol/L (136-145) 02/24/18 05:45 Potassium 3.9 mmol/L (3.5-5.1) 02/24/18 05:45 Chloride 107 mmol/L (98-107) 02/24/18 05:45 Carbon Dioxide 27 mmol/L (21-32) 02/24/18 05:45 Anion Gap 7 MMOL/L (8-16) L 02/24/18 05:45 BUN 17 mg/dL (7-18) 02/24/18 05:45 Creatinine 1.0 mg/dL (0.55-1.3) 02/24/18 05:45 Creat Clearance w eGFR > 60 (>60) 02/24/18 05:45 Random Glucose 69 mg/dL (74-106) L 02/24/18 05:45 Calcium 8.2 mg/dL (8.5-10.1) L 02/24/18 05:45 Total Bilirubin 0.2 mg/dL (0.2-1) 02/24/18 05:45 AST 35 U/L (15-37) 02/24/18 05:45 ALT 33 U/L (13-61) 02/24/18 05:45 Alkaline Phosphatase 149 U/L (45-117) H 02/24/18 05:45 Total Protein 7.5 g/dl (6.4-8.2) 02/24/18 05:45 Albumin 3.5 g/dl (3.4-5.0) 02/24/18 05:45 RPR Titer Reactive 1:4 (NONREACTIVE) H D 02/24/18 05:45 T.pallidum Ab ([facility]) Reactive (NONREACTIVE) 02/24/18 05:45 lab noted - Treatment Hospital Course: Detox Protocol Followed, Responded well Patient has Accepted a Rehab Referral to: [facility] - Medication Discharge Medications: Ambulatory Orders Darunavir/Cobicistat [Prezcobix 800 mg-150 mg Tablet] 1 each PO DAILY 02/23/18 Emtricitabine/Tenofov Alafenam [Descovy 200-25 mg Tablet (Nf)] 1 each PO DAILY 02/23/18 - Diagnosis (1) Alcohol dependence with uncomplicated withdrawal Current Visit: Yes Status: Acute (2) Syphilis contact, treated Current Visit: Yes Status: Chronic (3) Weight loss Current Visit: Yes Status: Acute (4) Nicotine dependence Current Visit: No Status: Acute Qualifiers: Nicotine product type: cigarettes Substance use status: in withdrawal Qualified Code(s): F17.213 - Nicotine dependence, cigarettes, with withdrawal (5) HIV disease Current Visit: Yes Status: Chronic - AMA Did Patient Leave Against Medical Advice: Yes
[2018-02-25] MEDS ORDERED: chlordiazePOXIDE 5 MG CAPSULE PO SCH (17:00)
[2018-02-26] MEDS ORDERED: chlordiazePOXIDE HCL 10 MG CAPSULE PO SCH (17:00)
== END 2018-02-25 13:05 | disposition left against medical advice (07) | DRG 770 ==
LOC: YASAS 10:23 → Y6N 11:44
PROC: HZ2ZZZZ Detoxification Services for Substance Abuse Treatment (ICD-10-PCS; principal; 2018-02-23)
DX: F10.230 Alcohol dependence with withdrawal, uncomplicated (principal); F14.20 Cocaine dependence, uncomplicated; F15.20 Other stimulant dependence, uncomplicated; F12.20 Cannabis dependence, uncomplicated; F17.210 Nicotine dependence, cigarettes, uncomplicated; Z21 Asymptomatic human immunodeficiency virus [HIV] infection status; Z20.2 Contact with and (suspected) exposure to infections with a predominantly sexual mode of transmission; R63.4 Abnormal weight loss; Z68.22 Body mass index [BMI] 22.0-22.9, adult
CPT/HCPCS: 36415; 80053; 85027; 86593; 86780